=== PATIENT | female | born 1990 | race Two or more races ===

== ENCOUNTER 2017-08-20 08:57 | Day surgery (SDC) | payer OTHER ==
[2017-08-14 10:34] LABS: Basophils # (auto) 0 uL; Basophils % (auto) 0.3 % (0.0-2.0); Eosinophils # (auto) 0 uL; Eosinophils % (auto) 0.8 % (0.0-7.0); Hematocrit 39.4 % (36.0-46.0); Hemoglobin 13.3 g/dL (12.2-16.2); Lymphocytes # (auto) 1.5 uL; Lymphocytes % (auto) 29.2 % (10.0-50.0); Mean Corpuscular Hgb Conc. 33.7 g/dL (32.0-36.0); Mean Corpuscular Volume 89.1 fL (80.0-100.0); Monocytes # (auto) 0.3 uL; Monocytes % (auto) 4.9 % (0.0-12.0); Neutrophils # (auto) 3.4 uL; Neutrophils % (auto) 64.8 % (37.0-80.0); Nucleated Red Blood Cells % 0.1 %; Platelet Count (auto) 312 10^3/uL (140-450); Red Blood Cells 4.43 10^6/uL (4.0-5.20); Red Cell Distribution Width 12.5 % (11.8-14.3); White Blood Cell 5.2 10^3/uL (4.4-10.8)
[2017-08-14 10:48] LABS: INR 0.92 (0.9-1.15); Partial Thromboplastin Time 29.8 sec (22.64-33.71)
[2017-08-14 10:50] LABS: Urine Bacteria NONE SEEN /hpf (None Seen); Urine Blood Negative /uL (Negative); Urine Mucus FEW (None Seen); Urine Specific Gravity 1.029 (1.001-1.035); Urine WBC 3 /hpf (0 - 5)
[2017-08-14 10:55] LABS: Albumin 3.4 g/dL (3.4-5.0); BUN/Creatinine Ratio 20.3; Bilirubin, Total 0.5 mg/dL (0.2-1.0); Calcium 8.7 mg/dL (8.5-10.1); Potassium 3.8 mmol/L (3.5-5.1); Total Protein 7.6 g/dL (6.4-8.2)
[~2017-08-20] VITALS: Ht 172.7 cm; Wt 129.3 kg
[~2017-08-20 08:57] MED LIST: FLUO-125 PO
[2017-08-20] MEDS ORDERED: BACITRACIN TOP OINT 1 UD PKG TOP ONE (10:25)
[2017-08-20] MEDS ORDERED: ceFAZolin 1GM VL ONE (10:25)
[2017-08-20] MEDS ORDERED: BUPIVACAINE 0.75% INJ 10ML MPV SDV IJ ONE ×2 (10:25→11:49)
[2017-08-20] MEDS ORDERED: CLINDAMYCIN 600MG IV 50 ML IV ONE (10:39)
[2017-08-20] MEDS ORDERED: LIDOCAINE HCL 2 %PF INJ 10ML AMP IJ ONE (10:44)
[2017-08-20] MEDS ORDERED: fentaNYL CITRATE 100 MCG/2 ML VL ONE (10:44)
[2017-08-20] MEDS ORDERED: MIDAZOLAM HCL 1MG/1ML-2 ML VIAL ONE (10:44)
[2017-08-20] MEDS ORDERED: PROPOFOL 10 MG/ML 20 ML IV ONE ×2 (10:44)
[2017-08-20] MEDS ORDERED: ROCURONIUM 10MG/ML 10ML VIAL IV ONE (10:48)
[2017-08-20] MEDS ORDERED: NEOSTIGMINE 1 MG/ML INJ (10mg/10ML VIAL) ONE (11:47)
[2017-08-20] MEDS ORDERED: GLYCOPYRROLATE 0.2 MG/ML 1ML VIAL ONE (11:47)
[2017-08-20] MEDS ORDERED: HYDROmorphone HCL 2 MG/ML VL IV PRN (12:15)
[2017-08-20] MEDS ORDERED: ONDANSETRON HCL 4 MG/2 ML VIAL IV ONE (12:15)
[2017-08-20] MEDS ORDERED: ePHEDrine SULFATE 50 MG/ML AMP IV PRN (12:15)
[2017-08-20] MEDS ORDERED: hydrALAZINE HCL 20 MG/ML VL IV PRN (12:15)
[2017-08-20 13:14] VITALS: BP 104/62
== END 2017-08-20 13:14 | disposition home or self-care (01) ==
LOC: SUR 08:57
PROVIDERS: ATTEND Podiatrist Foot & Ankle Surgery
DX: S93.492A Sprain of other ligament of left ankle, initial encounter (principal); X58.XXXA Exposure to other specified factors, initial encounter; Y93.89 Activity, other specified; Y92.89 Other specified places as the place of occurrence of the external cause; Y99.8 Other external cause status; M77.32 Calcaneal spur, left foot; M25.372 Other instability, left ankle; Z88.1 Allergy status to other antibiotic agents; Z88.2 Allergy status to sulfonamides; E66.9 Obesity, unspecified; Z68.41 Body mass index [BMI] 40.0-44.9, adult; D69.6 Thrombocytopenia, unspecified
CPT/HCPCS: 27698; 36415; 80053; 81001; 84702; 85025; 85610; 85730; J1170; J2250; J2405; J2704; J3010; J3490; Q4139; J0690

== ENCOUNTER → 2017-12-10 | Day surgery (SDC) | payer OTHER ==
[2017-12-05 10:54] LABS: Basophils # (auto) 0 uL; Basophils % (auto) 0.4 % (0.0-2.0); Eosinophils # (auto) 0 uL; Eosinophils % (auto) 0.9 % (0.0-7.0); Hematocrit 41.5 % (36.0-46.0); Lymphocytes # (auto) 1.5 uL; Lymphocytes % (auto) 32.1 % (10.0-50.0); Mean Corpuscular Hemoglobin 30.5 pg (28.0-32.0); Mean Corpuscular Hgb Conc. 33.8 g/dL (32.0-36.0); Mean Corpuscular Volume 90.1 fL (80.0-100.0); Monocytes # (auto) 0.3 uL; Monocytes % (auto) 5.9 % (0.0-12.0); Neutrophils # (auto) 2.8 uL; Neutrophils % (auto) 60.7 % (37.0-80.0); Platelet Count (auto) 309 10^3/uL (140-450); Red Blood Cells 4.61 10^6/uL (4.0-5.20); Red Cell Distribution Width 13.1 % (11.8-14.3); White Blood Cell 4.7 10^3/uL (4.4-10.8)
[2017-12-05 11:03] LABS: INR 0.92 (0.9-1.15); Partial Thromboplastin Time 30.1 sec (22.64-33.71)
[2017-12-05 11:12] LABS: Albumin 3.5 g/dL (3.4-5.0); BUN/Creatinine Ratio 15.3; Bilirubin, Total 0.4 mg/dL (0.2-1.0); Calcium 8.7 mg/dL (8.5-10.1); Potassium 4.3 mmol/L (3.5-5.1); Total Protein 7.8 g/dL (6.4-8.2)
[2017-12-05 12:06] LABS: Urine Bacteria FEW /hpf (None Seen); Urine Blood Negative /uL (Negative); Urine Mucus FEW (None Seen); Urine Specific Gravity 1.022 (1.001-1.035); Urine WBC 3 /hpf (0 - 5)
[~2017-12-10] VITALS: Ht 172.7 cm; Wt 130.2 kg
[~2017-12-10] MED LIST changes: +BUPIVACAINE 0.75% INJ 10ML MPV SDV IJ ONE; +CLINDAMYCIN 600MG IV 50 ML IV ONE; +DEXAMETHASONE SOD PHOS 4 MG/1ML SDV INJ ONE; +MIDAZOLAM HCL 1MG/1ML-2 ML VIAL ONE; +MORPHINE SULFATE INJECTION 1 ML ONE; +ONDANSETRON HCL 4 MG/2 ML VIAL IV ONE; +ONDANSETRON HCL 4 MG/2 ML VIAL ONE; +PROPOFOL 10 MG/ML 20 ML IV ONE; +SUCCINYLCHOLINE CHLORIDE 20 MG/ML 10ML VIAL IV ONE; +ePHEDrine SULFATE 50 MG/ML AMP IV PRN; +fentaNYL CITRATE 100 MCG/2 ML VL ONE; +hydrALAZINE HCL 20 MG/ML VL IV PRN
[2017-12-10] MEDS: MORPHINE SULFATE 8mg/ml INJ SDV IV PRN ×3 (10:52→11:12)
[2017-12-10 11:34] VITALS: BP 130/73
== END ==
LOC: SUR 07:40
PROVIDERS: ATTEND Podiatrist Foot & Ankle Surgery
DX: S93.491A Sprain of other ligament of right ankle, initial encounter (principal); X58.XXXA Exposure to other specified factors, initial encounter; Y93.9 Activity, unspecified; Y92.9 Unspecified place or not applicable; Y99.9 Unspecified external cause status; M25.371 Other instability, right ankle; S93.411A Sprain of calcaneofibular ligament of right ankle, initial encounter; S96.811A Strain of other specified muscles and tendons at ankle and foot level, right foot, initial encounter; Z88.1 Allergy status to other antibiotic agents; E66.01 Morbid (severe) obesity due to excess calories; Z68.41 Body mass index [BMI] 40.0-44.9, adult; Z88.2 Allergy status to sulfonamides
CPT/HCPCS: 27698; 36415; 80053; 81001; 84702; 85025; 85610; 85730; J0330; J2250; J2270; J2405; J2704; J3010; J3490; V2790; J1100